=== PATIENT | male | born 2000 | race Caucasian/White ===

== ENCOUNTER 2021-03-28 15:24 | Emergency (ER) | payer OTHER, SELFPAY ==
[2021-03-28 15:26] VITALS: BP 122/71; PULSE 70; TEMP 36.2; O2SAT 97; BMI 30.6
--- NOTE | 2021-03-28 15:51 | EKG12_ITS ---
Test Reason : CHEST PAIN Blood Pressure : / mmHG Vent. Rate : 064 BPM Atrial Rate : 064 BPM P-R Int : 118 ms QRS Dur : 084 ms QT Int : 372 ms P-R-T Axes : 030 068 009 degrees QTc Int : 383 ms Normal sinus rhythm Normal ECG Confirmed by ROB BLOCK, JARAD ([id number]), scientific publications editor MARITO TOVAR ([id number]) on 04/01/2021 10:19:55 A M Referred By: MISTY Confirmed By:RADHA RIVAS MD
--- NOTE | 2021-03-28 15:58 | ED.VIS.CHEST ---
HPI History of Present Illness Chief Complaint: Chest Pain Informant: patient Narrative Narrative: Patient complains of intermittent left-sided chest pain. He requests a cardiac echo. He has been getting episodes of chest pain since about October of this year. They got worse between October and December. They were then getting better. They are now starting to get more frequent. He has been having off-and-on today. Nothing specifically brings them on or makes them go away. They last for hours at a time. He gets no GERD symptoms. No shortness of breath nausea vomiting. He does have a bit of a cold with slight runny nose but no other symptoms. He is not coughing. No hemoptysis. No leg pain or swelling. He is PERC negative. No family history of cardiac disease or PE. He has had prior blood works x-rays and EKGs. He states that one test that has not been done is an echo so he wanted to see if he could get one today. PFSH PFSH Allergy/AdvReac Type Severity Reaction Status Date / Time No Known Allergies Allergy Verified 03/28/21 15:25 Social History Smoking Status: Never smoker ROS ROS ED Constitutional Constitutional ED: Denies chills or fever(s) Eyes Eyes: Denies change in vision ENT ENT ED: Reports rhinorrhea; Denies sore throat Cardiovascular Cardiovascular: Reports chest pain; Denies palpitations or racing heartbeat Respiratory/Chest Respiratory/Chest: Denies cough or dyspnea Gastrointestinal Gastrointestinal: Denies nausea or vomiting Genitourinary Genitourinary ED: Denies hematuria Musculoskeletal Musculoskeletal: Denies arthralgias, back pain, myalgias or neck pain Integumentary Denies rash Neurologic Neurologic: Denies headache(s), paresthesias or weakness Psychiatric Psychiatric: Denies anxiety or depression Endocrine Endocrinology: Denies polydipsia or polyuria Allergic/Immunologic Allergic/Immunologic ED: Denies urticaria EXAM Physical Exam Const Vital Signs: 03/28/21 15:26 03/28/21 15:53 Temperature 97.1 F L Temperature Source Temporal Pulse Rate 70 Respiratory Effort Normal Non-Labored Blood Pressure 122/71 H Blood Pressure Mean 88 Pulse Ox 97 Oxygen Delivery Method Room Air Positive well developed General Appearance ED: well developed and NAD HEENT Reports moist mucous membranes normocephalic and atraumatic Eyes EOMs intact bilaterally General Eye ED: Negative for pale conjunctiva or scleral icterus Neck no JVD General: Negative for tenderness Chest Wall inspection of chest normal Chest Narrative: mild TTP Chest: tenderness Resp normal respiratory effort Cardio regular rate, regular rhythm and no murmurs Rate: Negative for bradycardia or tachycardic Peripheral Pulses: pulses 2+ throughout GI normal to inspection, nondistended, normoactive bowel sounds, soft to palpation and non-tender Back/Spine no CVA tenderness Extremity normal to inspection General Extremety ED: Negative for edema, pulses abnormal or tenderness General Extremity: Negative for edema or pulses abnormal Neuro Sensorium / Orientation: awake and alert Psych mental status grossly normal Skin no rashes or lesions noted Heart Score History: Slightly/Non-Suspicious ECG: Normal Age: </= 45 years Risk Factors: No Risk Factors Score: 0 MDM MDM MDM Narrative Medical decision making narrative: Patient's EKG and chest x-ray showed no acute process. He has been having the symptoms isolated to the left parasternal area for 5 or 6 months. He is PERC negative. His vitals are normal. He looks nontoxic. He has had work-up with further imaging and labs elsewhere. I think he is okay for follow-up. I will refer him to cardiology and a primary physician. I explained that we do not have the ability and need to do an echocardiogram at this time. Radiography Diagnostic Testing: Clinical Impression(s) from Imaging Studies Chest X-Ray 03/28/21 16:00 IMPRESSION: Normal x-ray examination of the chest. Electronically Signed: Micheal Wren MD at 16:12 EDT Tel , Service support , EKG Initial EKG: Comments: EKG done for intermittent chest pain read by me shows normal sinus rhythm with overall rate of 64. No ectopy. No acute ST elevation or depression. TN interval, QRS duration and QTc normal. No prior found on our system for comparison. Discharge Plan Triage Chief Complaint: Chest Pain ED Provider: Alexys Dunlap Dx/Rx/DC Orders Clinical Impression: Chest pain Instructions: ED Chest Pain, Uncertain Cause Referrals: Tony Renteria DO [STAFF PHYSICIAN] - As soon as possible Miguel Angel Lopez MD [STAFF PHYSICIAN] - As soon as possible Disposition Disposition: Home, Self Care
--- NOTE | 2021-03-28 16:00 | RAD_ITS ---
STUDY: X-RAY CHEST REASON FOR EXAM: Male, 21 years old. Chest pain TECHNIQUE: PA and lateral views of the chest. COMPARISON: None. FINDINGS: The lungs are clear and expanded. There is no demonstrated pleural abnormality. Normal size heart. Normal mediastinum and latasha. Normal visualized pulmonary arteries. Normal visualized aortic arch and descending thoracic aorta. Normal visualized thoracic spine. Normal visualized ribs, clavicles, and shoulders. There is no demonstrated abnormality of the visualized soft tissue structures of the upper abdomen. RAD/Chest PA and Lateral IMPRESSION: Normal x-ray examination of the chest. Electronically Signed: Micheal Wren MD at 16:12 EDT Tel , Service support ,
== END 2021-03-28 17:03 | disposition home or self-care (01) ==
LOC: ED 16:34
PROVIDERS: Emergency Provider Emergency Medicine
DX: R07.89 Other chest pain (principal); J34.89 Other specified disorders of nose and nasal sinuses
CPT/HCPCS: 71046; 93005; 99282

== ENCOUNTER 2023-01-27 09:03 | Emergency (ER) | payer OTHER, SELFPAY ==
[2023-01-27 09:04] VITALS: BP 127/80; PULSE 77; RESP 16; TEMP 35.7; O2SAT 97; BMI 28.7
--- NOTE | 2023-01-27 09:32 | CT_ITS ---
INDICATION: vertigo EXAMINATION: CT BRAIN - CT Head or Brain W/O Contrast Injection TECHNIQUE: Multiple axial images were obtained of the head without intravenous contrast. A radiation dose optimization technique was used for this scan. IV Contrast dosage and agent: None. RADIATION DOSAGE (If Supplied By Facility): CTDIvol = ( 44.99 ) mGy, DLP = ( 796.11 ) mGycm COMPARISON: No relevant prior comparison study available FINDINGS: BRAIN PARENCHYMA: No intra- or extra-axial hemorrhage. No evidence of acute infarct. No intracranial mass or mass effect. There is preservation of the doll/white matter interface. Posterior fossa structures are unremarkable. CSF SPACES: Appropriate for age. No hydrocephalus. Basal cisterns are patent. CALVARIUM, SKULL BASE, PARANASAL SINUSES AND MASTOID AIR CELLS: There is a rounded low-attenuation focus within the right maxillary sinus which may reflect a mucous retention cyst or polyp. No discrete lytic or blastic abnormalities. ORBITS: Both globes, extraocular muscles, optic nerves and retrobulbar fat appear unremarkable. ASPECTS Score for Acute Strokes: 10 CT/Brain/Head without Contrast IMPRESSION: No acute intracranial process. Electronically Signed: Parris Cook MD at 10:23 EDT ,
--- NOTE | 2023-01-27 09:33 | EX.ED.DYSGE1 ---
HPI History of Present Illness Chief Complaint: Dizziness Informant: patient Narrative Narrative: With dizziness on and off since for the past 3 days. He states feels off balance with nausea sensations. No lightheaded symptoms. No chest pains. Thursday night prior to symptoms he did drink alcohol socially. He was not hung over. He smokes marijuana intermittently states on Thursday he did smoke marijuana prior to symptoms occurring. Denies previous similar symptoms. Denies sinus congestion or any ear pain or ringing. Denies history of similar. Denies any past medical history. He does have a PCP last seen in the past May. Prior similar symptoms: No PFSH PFSH Home Medications diazepam 5 mg tablet 5 mg PO Q8 PRN dizziness or vertigo #10 tabs 01/27/23 [Rx Last Taken Unknown] Allergy/AdvReac Type Severity Reaction Status Date / Time No Known Allergies Allergy Verified 01/27/23 09:04 Social History Smoking Status: Never smoker ROS ROS ED Constitutional Constitutional ED: Denies chills, fever(s) or sweats Eyes Eyes: Denies change in vision ENT ENT ED: Denies dysphagia or sore throat Cardiovascular Cardiovascular: Denies chest pain, leg edema, palpitations or racing heartbeat Respiratory/Chest Respiratory/Chest: Denies cough, dyspnea or dyspnea on exertion Gastrointestinal Gastrointestinal: Denies abdominal pain, diarrhea, nausea or vomiting Genitourinary Genitourinary ED: Denies dysuria, hematuria or urinary frequency Musculoskeletal Musculoskeletal: Denies back pain, extremity pain or neck pain Integumentary Denies rash or wounds Neurologic Neurologic: Reports other Details: Dizziness ; Denies headache(s), paresthesias or weakness EXAM Physical Exam Const Vital Signs: 01/27/23 09:04 01/27/23 10:10 01/27/23 12:03 Temperature 96.3 F L Temperature Source Temporal Pulse Rate 77 62 Respiratory Rate 16 15 Respiratory Effort Normal Non-Labored Respiratory Pattern Normal Blood Pressure 127/80 H 109/77 Blood Pressure Mean 95 Pulse Ox 97 98 Oxygen Delivery Method Room Air Positive well nourished and well developed General Appearance ED: well developed and NAD HEENT Reports moist mucous membranes normocephalic and atraumatic Eyes PERRL, EOMs intact bilaterally and conjunctivae normal Eyes Narrative: Horizontal nystagmus when deviating to the left. General Eye ED: Yes normal appearance of both eyes Neck no lymphadenopathy and supple General: Negative for tenderness Chest Wall Chest: Negative for tenderness Resp normal respiratory effort and normal air movement Effort and Inspection: symmetric chest movement; Negative for respiratory distress Cardio regular rate, regular rhythm and no murmurs Peripheral Pulses: pulses 2+ throughout GI normal to inspection, nondistended, normoactive bowel sounds and non-tender Palpation: Negative for guarding or rebound tenderness present Back/Spine no CVA tenderness and no thoracic nor lumbar tenderness Extremity normal to inspection General Extremety ED: Negative for edema or tenderness General Extremity: Negative for edema Neuro oriented x3, CN's II-XII intact bilaterally and no sensory deficits noted Neuro Narrative: NIH of 0, [place] had the nystagmus however is not symptomatic on the left. Cerebellar is intact upper extremities. Sensorium / Orientation: awake and alert Skin no rashes or lesions noted and no wounds MDM MDM MDM Narrative Medical decision making narrative: Interventions / MDM: Differential diagnosis: Vertigo Diagnosis considered but do not suspect: CVA, however symptoms controlled. My EKG interpretation: N/A Imaging independently reviewed and interpreted by myself: CT brain: No acute process also read by radiology. External documents reviewed: N/A Test considered but not ordered:N/A ED course: Patient presenting with vertical horizontal nystagmus noted to the left. Treated with Valium in the ED. CT brain ordered. CT results negative. He states only minimal improvement of symptoms. He was ambulated by myself in the room with no instability. Possible aggravation from alcohol and history of marijuana use. Patient does follow PCP. Discussed symptomatic treatment with medications and monitoring symptoms. Re-evaluation: stable. Return precautions discussed. Disposition discussed with patient/family/significant other: Patient Case discussed with consulting clinician: N/A This note was generated with [employer] dictation software. It may contain incorrect words, spelling, and punctuation that were not noted in checking the note before signing. Radiography Diagnostic Testing: Clinical Impression(s) from Imaging Studies Brain CT 01/27/23 09:32 IMPRESSION: No acute intracranial process. Electronically Signed: Parris Cook MD at 10:23 EDT , Discharge Plan Triage Chief Complaint: Dizziness ED Provider: Ben Morfin Dx/Rx/DC Orders Instructions: ED Dizziness, Uncertain Cause Prescriptions: New diazepam [diazepam] 5 mg tablet 5 mg PO Q8 PRN (Reason: dizziness or vertigo) Qty: 10 0RF Primary Care Provider: TRISTA BELCHER Referrals: [facility] Doctor,Out of [Non-Staff] - Activity Restrictions/Additional Instructions: CT brain negative. Take medication as prescribed. Follow-up with your doctor. Return if worsening symptoms. Disposition Disposition: Home, Self Care Discharge Date/Time: 01/27/23 12:05
[2023-01-27] MEDS: diazePAM 5 MG Tablet PO (10:02)
[2023-01-27 12:03] VITALS: BP 109/77; PULSE 62; RESP 15; O2SAT 98
== END 2023-01-27 12:05 | disposition home or self-care (01) ==
PROVIDERS: Emergency Provider Emergency Medicine; Visit Provider Emergency Medicine
DX: R42 Dizziness and giddiness (principal)
CPT/HCPCS: 70450; 99283